=== PATIENT | female | born 1990 ===

== ENCOUNTER 2017-04-19 00:18 | Day surgery (SDC) | payer OTHER ==
[~2017-04-19 00:18] MED LIST: Clobetasol Prop50 ML TP; DULO30 PO; Desyrel50 MG PO; FOLI1 PO; GABA300 PO; META800 PO; METTREX2.5 PO; MIRT15 PO; Nortriptyline H10 MG PO; PRED20 PO; PRED5 PO; TRIA80TC TOP; Temazepam15 MG PO; Trexall10 MG PO; [UNRECOGNIZED DRUG - OTHER] PO
== END 2017-04-19 15:26 | disposition home or self-care (01) ==
LOC: ATC 00:18
DX: M05.9 Rheumatoid arthritis with rheumatoid factor, unspecified (principal); F17.210 Nicotine dependence, cigarettes, uncomplicated; Z88.2 Allergy status to sulfonamides; Z79.899 Other long term (current) drug therapy
CPT/HCPCS: 96365; J0129

== ENCOUNTER 2017-08-18 00:03 | Day surgery (SDC) | payer OTHER ==
[2017-08-18] MEDS ORDERED: DULO30 PO (10:37)
[2017-08-18] MEDS ORDERED: XATMEP2.5 MG/1 M PO (10:38)
== END 2017-08-18 15:33 | disposition home or self-care (01) ==
LOC: ATC 00:03
DX: M05.9 Rheumatoid arthritis with rheumatoid factor, unspecified (principal)
CPT/HCPCS: 96365; J0129

== ENCOUNTER 2017-09-15 00:53 | Day surgery (SDC) | payer OTHER ==
[~2017-09-15 00:53] MED LIST changes: +XATMEP2.5 MG/1 M PO
== END 2017-09-15 15:12 | disposition home or self-care (01) ==
LOC: ATC 00:53
DX: M05.9 Rheumatoid arthritis with rheumatoid factor, unspecified (principal)
CPT/HCPCS: 96365; J0129

== ENCOUNTER 2019-04-03 18:47 | Emergency (ER) | payer SELFPAY ==
[~2019-04-03] VITALS: Ht 160 cm; Wt 52.6 kg
[2019-04-03 19:40] LABS: Calcium, Ionized (POC) 1.21 mmol/L (1.10-1.46); Chloride (POC) 105 mmol/L (98-108); Creatinine (POC) 0.6 mg/dL (0.6-1.0); Glucose (ISTAT POC) 98 mg/dL (70-99); Hemoglobin (POC) 13.9 g/dL (12.0-16.0); Potassium (POC) 4.1 mmol/L (3.5-5.5); Sodium (POC) 141 mmol/L (135-148); Total CO2 (POC) 28 mmol/L (21-32)
== END 2019-04-03 21:24 | disposition home or self-care (01) ==
LOC: ER 18:47
DX: K03.81 Cracked tooth (principal); F32.9 Major depressive disorder, single episode, unspecified; Z88.2 Allergy status to sulfonamides; Z79.899 Other long term (current) drug therapy
CPT/HCPCS: 36415; 70487; 80047; 85014; 99284-25; A9270; Q9967